=== PATIENT | female | born 1970 | race Caucasian/White ===

== ENCOUNTER 2023-12-08 14:34 | Emergency (ER) | payer BC ==
[~2023-12-08] VITALS: Ht 157.5 cm; Wt 84.5 kg
[2023-12-08 14:49] VITALS: TEMP 97.8
[2023-12-08] MEDS ORDERED: Ketorolac 30 MG/ML VIAL IM ONE (17:30)
[2023-12-08] MEDS ORDERED: traMADol 50 MG TAB PO ONE (17:30)
[2023-12-08] MEDS ORDERED: Cyclobenzaprine 10 MG TAB PO ONE (17:30)
[2023-12-08] MEDS ORDERED: HYDROcodone/Acetaminophen 7.5-325 MG TAB PO ONE (18:30)
[2023-12-08] MEDS ORDERED: diphenhydrAMINE 50 MG/ML 1 ML VIAL IM ONE (19:00)
[2023-12-08] MEDS ORDERED: FLEXERIL 1010 MG/TAB PO (19:53)
[2023-12-08 20:35] VITALS: BP 161/93; PULSE 67
== END 2023-12-08 20:35 | disposition home or self-care (01) ==
LOC: COL.ER 14:34
DX: M54.50 Low back pain, unspecified (principal)
CPT/HCPCS: J1200; J1885